=== PATIENT | female | born 2000 | race Caucasian/White ===

== ENCOUNTER 2024-03-06 07:58 | Emergency (ER) | payer MEDICAID ==
[~2024-03-06] VITALS: Ht 162.6 cm; Wt 69.9 kg
[2024-03-06 08:02] VITALS: BP 130/83; PULSE 88; RESP 16; TEMP 97.6; O2SAT 99
[2024-03-06] MEDS ORDERED: CIPR7.5D2 OT (08:21)
[2024-03-06] MEDS ORDERED: IBUP-2218 PO (08:21)
[2024-03-06] MEDS ORDERED: ACET500T99 PO (08:21)
[2024-03-06] MEDS ORDERED: KETOROLAC 30 MG/ML VIAL ONE (08:28)
[2024-03-06] MEDS: KETOROLAC 30 MG/ML VIAL IM ONE (08:30)
== END 2024-03-06 08:45 | disposition home or self-care (01) ==
LOC: MED 07:58
DX: H66.93 Otitis media, unspecified, bilateral (principal); R51.9 Headache, unspecified; R03.0 Elevated blood-pressure reading, without diagnosis of hypertension; Z79.899 Other long term (current) drug therapy
CPT/HCPCS: 81025; 96372; 99283; J1885